=== PATIENT | male | born 1990 | race African-American/Black ===

== ENCOUNTER 2022-09-06 04:25 | Emergency (ER) | payer MEDICAID ==
[~2022-09-06] VITALS: Ht 177.8 cm; Wt 78.0 kg
[2022-09-06 04:29] VITALS: BP 160/93
== END 2022-09-06 07:45 | disposition left against medical advice (07) ==
LOC: ER 04:25
DX: Z53.21 Procedure and treatment not carried out due to patient leaving prior to being seen by health care provider (principal)